=== PATIENT | female | born 1985 | race Caucasian/White ===

== ENCOUNTER 2022-05-31 16:11 | Outpatient (CLI) | payer OTHER, SELFPAY | END 2022-05-31 16:12 | disposition home or self-care (01) | LOC: NFLDREF 16:12 | PROVIDERS: PCP Family Medicine; Visit Provider Family Medicine | DX: R30.0 Dysuria (principal); R30.9 Painful micturition, unspecified | CPT/HCPCS: 0353U; 87086 ==

== ENCOUNTER 2023-01-14 09:09 | Outpatient (CLI) | payer OTHER, SELFPAY | END 2023-01-14 09:10 | disposition home or self-care (01) | LOC: NFLDREF 01-15 10:29 | PROVIDERS: PCP Family Medicine; Referring Provider Family Medicine; Visit Provider Nurse Practitioner Family | DX: R35.0 Frequency of micturition (principal); R10.9 Unspecified abdominal pain; R10.30 Lower abdominal pain, unspecified | CPT/HCPCS: 87086 ==

== ENCOUNTER 2023-04-12 10:37 | Outpatient (CLI) | payer OTHER, SELFPAY ==
[2023-04-12 11:03] LABS: Basophils Percent Auto 0.5 % (0.0-3.0); Eosinophils Percent Auto 1.9 % (0.0-7.0); Hematocrit 38.7 % (33.0-51.0); Hemoglobin* 12.9 gm/dL (12.0-16.0); Lymphocytes Percent Auto 44.7 % (20-44); Mean Corpuscular HGB Conc 33 gm/dL (32-36); Mean Corpuscular Hemoglobin 30 pg (26-34); Mean Corpuscular Volume 89 fL (80-100); Monocytes Percent Auto 6.6 % (0.0-11.0); Neutrophils Percent Auto 46.3 % (42.0-72.0); Platelet Count* 286 K/uL (140-440); RDW Coefficient of Variation % 12.1 % (11.5-15.5); Red Blood Count 4.33 m/uL (4.00-5.20); White Blood Count* 4.25 K/uL (4.50-11.00)
[2023-04-12 11:24] LABS: Slide Review Reflex No
== END 2023-04-12 10:38 | disposition home or self-care (01) ==
LOC: LAB 10:38
PROVIDERS: PCP Family Medicine
DX: Z13.0 Encounter for screening for diseases of the blood and blood-forming organs and certain disorders involving the immune mechanism (principal)
CPT/HCPCS: 36415; 85025

== ENCOUNTER 2025-01-09 15:13 | Outpatient (CLI) | payer OTHER, SELFPAY ==
--- NOTE | 2025-01-09 14:45 | CRLHL7_ITS ---
For Patients: As a result of the Century Cures Act, medical imaging exams and procedure reports are released immediately into your electronic medical record. You may view this report before your referring provider. If you have questions, please contact your health care provider. OBSTETRICAL ULTRASOUND TRANSVAGINAL CLINICAL INDICATION: Positive test. Surgery: History of tubal reversal. LMP: 11/27/2024 OVIDIO by LMP: 09/03/2025 Gestational age: 6 weeks 1 day PREVIOUS ULTRASOUND: No TECHNIQUE: Real-time white-scale imaging of the fetus was performed transvaginal. Transvaginal imaging was performed for better visualization of the endometrium and ovaries. FINDINGS: CRL: 0.5 cm, 6 weeks 1 day; OVIDIO 09/03/2025 heart rate: 113 BPM Gestational sac: 1.3 cm, appears within normal limits Yolk sac: 1.3 mm, appears within normal limits Right ovary: Within normal limits; 2.9 x 1.7 x 2.0 cm Left ovary: Within normal limits; 2.6 x 2.1 x 2.4 cm IMPRESSION: 1. Single living intrauterine measures 6 weeks 1 day with sonographic due date of 09/03/2025. 2. Uterine fibroid measures 2.1 x 1.6 x 1.8 cm 3. Subchorionic hemorrhage measures 3.0 x 1.6 x 1.7 cm. 4. Right ovarian cyst measures 2.3 x 1.5 x 1.6 cm. HARRY EDMONDS M.D. Diagnostic Radiologist [email or web address] Transcribed: 4:[address]/Dictated by: Harry Edmonds MD @ 01/09/2025 4:12:00 PM (Electronically Signed)
== END 2025-01-09 15:14 | disposition home or self-care (01) ==
PROVIDERS: PCP Family Medicine; Visit Provider Registered Nurse
DX: O09.811 Supervision of pregnancy resulting from assisted reproductive technology, first trimester (principal); O34.11 Maternal care for benign tumor of corpus uteri, first trimester; D25.9 Leiomyoma of uterus, unspecified; O20.9 Hemorrhage in early pregnancy, unspecified; O34.81 Maternal care for other abnormalities of pelvic organs, first trimester; N83.201 Unspecified ovarian cyst, right side; Z3A.01 Less than 8 weeks gestation of pregnancy
CPT/HCPCS: 76817

== ENCOUNTER 2025-01-09 16:16 | Outpatient (CLI) | payer OTHER, SELFPAY | END 2025-01-09 16:17 | disposition home or self-care (01) | PROVIDERS: PCP Family Medicine; Visit Provider Registered Nurse | DX: Z34.91 Encounter for supervision of normal pregnancy, unspecified, first trimester (principal) | CPT/HCPCS: 83020; 83021; 85660; 86592; 86703; 86704; 86706; 86762; 86787; 86803; 86850; 86900; 86901; 87086; 87340 ==

== ENCOUNTER 2025-01-23 13:34 | Outpatient (CLI) | payer OTHER, SELFPAY ==
--- NOTE | 2025-01-23 13:45 | CRLHL7_ITS ---
For Patients: As a result of the Century Cures Act, medical imaging exams and procedure reports are released immediately into your electronic medical record. You may view this report before your referring provider. If you have questions, please contact your health care provider. INDICATION: First trimester scan, establish dates. Follow-up viability. History of tubal reversal. COMPARISON: January 09, 2025. TECHNIQUE: Real-time white-scale imaging of the pelvis was performed. FINDINGS: Sonographic imaging demonstrates a single living intrauterine gestation. The embryo demonstrates a regular cardiac rate measuring 159 beats per minute. The embryo`s crown-rump length measurement of 1.8 cm corresponds to a gestational age of 8 weeks 2 days with a sonographic due date of September 02, 2025. There is a normal-appearing yolk sac measuring up to 4 mm. There are no gross abnormalities noted within the embryo at this early state of development. The placenta has not yet developed. The gestational sac has a normal appearance. There are 2 areas of subchorionic hemorrhage one inferolaterally on the left measuring 34 x 18 x 30 mm and the other along the right superior gestational sac measuring 19 x 5 x 14 mm. Previously there was only one measurable area of subchorionic hemorrhage superior to the gestational sac. The amount of fluid within the sac appears appropriate for gestational age. The cervix is closed. The myometrium demonstrates 2 small intramural fibroids one along the mid inferior right uterine myometrium measuring 1.8 x 1.6 x 1.6 cm and the other in the mid lateral left intramural uterus measuring 1.5 x 1.2 x 1.4 cm. Previously only one uterine fibroid was measured. The ovaries are of normal size with the right measuring 3.8 x 2.5 x 3.4 cm and the left measuring 3.7 x 1.6 x 3.2 cm. There are small bilateral complex ovarian cysts likely proteinaceous or hemorrhagic on the right measuring 2.0 x 1.1 x 2.1 cm and on the left measuring 2.3 x 1.2 x 2.3 cm. There are no suspicious fluid collections noted in the cul-de-sac. IMPRESSION: 1. Single living intrauterine with a crown-rump length corresponding to an 8 week 2 day gestation with a sonographic due date of September 02, 2025. 2. Two areas of subchorionic hemorrhage previously only 1 area. 3. Two intramural fibroids. 4. Hemorrhagic or proteinaceous ovarian cysts. Dictated by Ortiz Hermosillo MD @ 01/23/2025 2:42:28 PM (Electronically Signed)
== END 2025-01-23 13:35 | disposition home or self-care (01) ==
LOC: US 13:34
PROVIDERS: PCP Family Medicine; Visit Provider Registered Nurse
DX: O20.9 Hemorrhage in early pregnancy, unspecified (principal); O34.11 Maternal care for benign tumor of corpus uteri, first trimester; D25.9 Leiomyoma of uterus, unspecified; Z3A.09 9 weeks gestation of pregnancy
CPT/HCPCS: 76817

== ENCOUNTER 2025-01-23 15:11 | Outpatient (CLI) | payer OTHER, SELFPAY | END 2025-01-23 15:12 | disposition home or self-care (01) | LOC: NFLDREF 15:16 | PROVIDERS: PCP Family Medicine; Visit Provider Registered Nurse | DX: Z34.91 Encounter for supervision of normal pregnancy, unspecified, first trimester (principal) | CPT/HCPCS: 87491; 87591 ==

== ENCOUNTER 2025-02-06 08:54 | Outpatient (CLI) | payer OTHER, SELFPAY ==
--- NOTE | 2025-02-06 09:15 | CRLHL7_ITS ---
For Patients: As a result of the Century Cures Act, medical imaging exams and procedure reports are released immediately into your electronic medical record. You may view this report before your referring provider. If you have questions, please contact your health care provider. INDICATION: Viability, follow-up subchorionic hemorrhage, history of tubal reversal TECHNIQUE: Ultrasound OB pelvis transabdominal. Real-time white-scale imaging of the pelvis was performed. COMPARISON: Ob ultrasound 01/23/2025 FINDINGS: Intrauterine gestation: Single. heart activity: 167 beats per minute Fithian-rump length: 3.6 cm. Estimated ultrasound age: 10 weeks 4 days. OVIDIO by ultrasound: 08/31/2025. Yolk sac: Normal. Perigestational hemorrhage: Two subchorionic hemorrhages are again noted. The largest measures 2.7 x 1.9 x 1.3 cm in the right superior fundus, previously 1.9 x 0.5 x 1.4 cm. A smaller hemorrhage measures 1.7 x 1.7 x 0.6 cm, previously 3.4 x 1.8 x 3 cm Ovaries and adnexa: The bilateral ovaries are not seen. Suspicious pelvic fluid collections: None Right uterine fibroid measuring 1.7 x 2.1 x 1 cm IMPRESSION: Single viable intrauterine measuring 10 weeks 4 days with OVIDIO by ultrasound 08/31/2025 Mixed change of 2 subchorionic hemorrhages. The largest in the right superior fundus has increased in size measuring up to 2.7 cm, previously 1.9 cm. A hemorrhage noted in the inferior left uterine fundus on prior exam measuring up to 3.4 cm has decreased now measuring up to 1.7 cm. Recommend close continued imaging follow-up. Dictated by Pauly Miller MD @ 02/09/2025 2:58:00 PM (Electronically Signed)
== END 2025-02-06 08:55 | disposition home or self-care (01) ==
LOC: US 08:55
PROVIDERS: PCP Family Medicine; Visit Provider Registered Nurse
DX: O20.9 Hemorrhage in early pregnancy, unspecified (principal); Z3A.10 10 weeks gestation of pregnancy
CPT/HCPCS: 76816